=== PATIENT | female | born 1995 | race Caucasian/White ===

== ENCOUNTER 2019-08-22 14:07 | Emergency (ER) | payer OTHER, SELFPAY ==
--- NOTE | ~2019-08-22 | XR_ITS ---
XR foot RT min 3V DATE: 08/22/2019 15:20 INDICATION: Dorsal swelling following injury TECHNIQUE: 4 views COMPARISON: None FINDINGS: Hallux valgus. No fracture, dislocation, periosteal reaction or bone destruction. IMPRESSION: Hallux valgus Reviewed, dictated and finalized at location A. IMPRESSION: Hallux valgus
--- NOTE | 2019-08-22 14:21 | ED.LOWEXIN ---
HPI - Extremity Injury (Lower) General Chief Complaint: Extremity Injury, Lower Stated Complaint: Hurt foot Time Seen by Provider: 08/22/19 14:42 Source: patient Mode of arrival: ambulatory Limitations: no limitations History of Present Illness HPI Narrative: Previously well 24-year-old woman comes in today complaining of a knot on the top of her right foot. Patient states that approximately a month and half ago she struck it on a bed frame and had pain for several days. Swelling has not improved and is painful while she wear shoes. She has no pain with ambulation Or foot movement. complaint: foot injury Onset (ago): week(s) (6) Injury: Right: foot Type of Injury: blunt Place: home Severity: moderate Relieving factors: rest Exacerbating factors: palpation Context: direct blow Associated symptoms: swelling Other symptoms: none Related Data Home Medications Medication Instructions Recorded Confirmed No Home Medications 08/22/19 08/22/19 Allergies Allergy/AdvReac Type Severity Reaction Status Date / Time No Known Allergies Allergy Unverified 09/26/14 06:29 Review of Systems Constitutional: Constitutional: Denies chills and Denies fever(s) ENT: Denies dysphagia, Denies nasal congestion and Denies sore throat Cardiovascular: Cardiovascular: Denies chest pain and Denies radiating jaw, neck or arm pain Respiratory: Respiratory: Denies cough, Denies dyspnea and Denies wheezing Gastrointestinal: Gastrointestinal: Denies nausea and Denies vomiting Musculoskeletal: Musculoskeletal: Reports as per HPI, Denies arthralgias and Denies joint swelling Neurologic: Denies vertigo, Denies dizziness, Denies syncope, Denies focal weakness, Denies numbness and Denies weakness Hematologic/Lymphatic: Hematologic/Lymphatic: Denies easy bleeding and Denies easy bruising Allergic/Immunologic: Allergic/Immunologic: Denies lip swelling and Denies wheezing PMFSH Social History Social History Smoking status: Current every day smoker Alcohol intake: never Substance use: current Substance use type: marijuana Living arrangements: with family Exam Const: General: healthy appearing, no acute distress and alert Orientation/consciousness: patient oriented x3 Resp: Effort & Inspection: normal respiratory effort and not labored Auscultation: clear to auscultation bilaterally, no rales, no rhonchi and no wheezes Cardio: Rate: regular rate Rhythm: regular rhythm Heart sounds: no murmurs Skin: General skin exam: normal color, no jaundice and no pallor Rashes: no rashes Neuro: General: patient oriented x3, moves all extremities, no focal motor deficits and CN's II-XI intact bilaterally Cranial nerves: Yes Nystagmus not present Speech: normal speech Extrem: General: normal to inspection and no clubbing, cyanosis or edema Other: 1.5 cm mobile nodule on the dorsum of the right foot which is minimally tender. It is overlying the mid 2nd metatarsal. There is no tenderness with active and passive motion of the mid and distal foot and there is no overlying erythema or induration. Psych: Appearance: grossly normal and well kempt Mental Status: mental status grossly normal Affect: normal affect Attitude: cooperative Thought content: Yes Normal thought content present Discharge Plan Discharge Clinical Impression: Contusion of foot Patient Disposition: Home, Self-Care Condition: Stable Instructions: Foot Contusion (ED) Follow-up/Referrals: Stew Thompson MD [Primary Care Provider] - Time of Disposition: 15:39
[2019-08-22 14:47] VITALS: BP 110/68; PULSE 81; RESP 16; TEMP 36.6; O2SAT 100
== END 2019-08-22 15:57 | disposition home or self-care (01) ==
PROVIDERS: Emergency Provider Emergency Medicine; PCP Family Medicine
DX: S90.31XA Contusion of right foot, initial encounter (principal); W22.03XA Walked into furniture, initial encounter
CPT/HCPCS: 51701; 73630; 99282; 99283

== ENCOUNTER 2020-01-21 21:56 | Emergency (ER) | payer OTHER, SELFPAY ==
[2020-01-21 22:47] VITALS: BP 110/60; PULSE 70; RESP 18; TEMP 36.6; O2SAT 99
[2020-01-21 23:00] LABS: Add Urine Microscopic? YES; Appearance Urine Cloudy (Clear); Bilirubin Urine Negative (Negative); Blood Urine 1+ (Negative); Color Urine Yellow (Yellow); Glucose Urine UA Negative (Negative); Ketones Urine Negative (Negative); Leukocyte Esterase Ur 2+ LEU/UL (Negative); Nitrate Urine Negative (Negative); Protein Urine 1+ (Negative); Specific Grav Ur >= 1.030 (1.010-1.020); Urobilinogen Urine 0.2 mg/dL (0.2-1.0)
[2020-01-21 23:06] LABS: Bacteria Urine 1+ /hpf; Squamous Epithelial Cell Urine Moderate /hpf (Few); WBC Urine >75 /hpf (0-3)
--- NOTE | 2020-01-21 23:38 | ED.ABDPAIN ---
HPI - Abdominal Pain General Chief Complaint: Urogenital-Female Stated Complaint: lower abd cramps Source: patient Mode of arrival: ambulatory Limitations: no limitations History of Present Illness MD elicited complaint: abdominal pain Pertinent past history: none Onset (ago): day(s) (3-4 days ago) Pain Consistency: intermittent Location: suprapubic Severity: mild Pain scale (0-10): 4 Quality: aching Radiation: none Exacerbating factors: other (urination) Relieving factors: rest Associated symptoms: dysuria Treatments prior to arrival: other (none) Related Data Allergies Allergy/AdvReac Type Severity Reaction Status Date / Time No Known Allergies Allergy Unverified 09/26/14 06:29 Review of Systems Review of Systems: Narrative: Patient states she has had urinary frequency and dysuria for the past 3-4 days. This has been becoming more severe and more uncomfortable, and that is why she comes in. She has had no fever or chills. Other 8 point review of systems negative except as above. [facility] Past Medical History Medical History No significant medical problems Surgical History Surgical History No significant past surgical history Family History Family History Father CAD (coronary artery disease) Social History Social History Smoking status: Current every day smoker Alcohol intake: never Substance use: current Substance use type: marijuana Exam Const: General: no acute distress HENMT: Head: normal to inspection Face and sinus: normal facial exam Teeth and gingiva: dentition normal Eyes: Conjunctivae: conjunctivae normal Neck: Neck: normal visual inspection Chest: Chest palpation & inspection: normal inspection of the chest Resp: Effort & Inspection: normal respiratory effort Auscultation: clear to auscultation bilaterally Cardio: Rate: regular rate Rhythm: regular rhythm GI: GI Palp: Yes Soft to palpation Other: nopn tender, except mild tenderness over bladder Back/Spine/Pelvis: Back: no CVA tenderness Skin: General skin exam: normal color Neuro: General: patient oriented x3 and moves all extremities Extrem: General: normal to inspection Psych: Appearance: grossly normal Mental Status: mental status grossly normal Thought content: Yes Normal thought content present Course Course Emergency Course: Urinanalysis reviewed. She was given rocephin 1 gram IM. Urine culture was set up. She was sent home with a script for Cipro, and instructed to follow up with her primary care provider. Vital Signs Vital signs: Vital Signs Temperature 36.6 C 01/21/20 22:47 Pulse Rate 70 01/21/20 22:47 Respiratory Rate 18 01/21/20 22:47 Blood Pressure 110/60 01/21/20 22:47 Pulse Oximetry 99 01/21/20 22:47 Temperature 36.6 C 01/21/20 22:47 Pulse Rate 70 01/21/20 22:47 Respiratory Rate 18 01/21/20 22:47 Blood Pressure 110/60 01/21/20 22:47 Pulse Oximetry 99 01/21/20 22:47 MDM - Abdominal Pain Lab Data Labs: Lab Results 01/21/20 Range/Units 22:54 Urine Color Yellow (Yellow) Urine Appearance Cloudy A (Clear) Urine pH 6.0 (5.0-8.0) Ur Specific [place] >= 1.030 H (1.010-1.020) Urine Protein 1+ H (Negative) Urine Glucose (UA) Negative (Negative) Urine Ketones Negative (Negative) Ur Blood (Man) 1+ H (Negative) Urine Nitrate Negative (Negative) Urine Bilirubin Negative (Negative) Urine Urobilinogen 0.2 (0.2-1.0) mg/dL Leukocyte Esterase Rfl 2+ H (Negative) EFRNANDA/UL Urine RBC 6-10 H (0-2) /hpf Urine WBC >75 H (0-3) /hpf Ur Squamous Epith Cells Moderate H (Few) /hpf Urine Bacteria 1+ H (None) /hpf Discharge Plan Discharge Clinical Impression: Urinary tract infection Qualifiers: Urinar
[2020-01-21] MEDS: cefTRIAXone 1 GM VIAL (23:50)
[2020-01-21 23:54] VITALS: BP 101/60; PULSE 70; RESP 18; TEMP 36.4; O2SAT 97
== END 2020-01-21 23:54 | disposition home or self-care (01) ==
PROVIDERS: Emergency Provider Emergency Medicine; PCP Family Medicine
DX: N39.0 Urinary tract infection, site not specified (principal); N10 Acute pyelonephritis
CPT/HCPCS: 81001; 87086; 87088; 96372; 99283; J0696

== ENCOUNTER 2020-03-19 22:07 | Emergency (ER) | payer OTHER, SELFPAY ==
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
--- NOTE | 2020-03-19 22:17 | ED.UPPEXIN ---
HPI - Extremity Injury (Upper) General Stated Complaint: Hurt left hand Source: patient Mode of arrival: ambulatory Limitations: no limitations History of Present Illness HPI narrative: Pt hit hand on suitcase when she set it down. Now pain on left hand area. complaint: injury to: left Other Extremity Injury: Left: hand Other injuries: none Handedness: left Place: home Severity: mild Relieving factors: none Exacerbating factors: none Context: direct blow Associated symptoms: denies other symptoms Related Data Allergies Allergy/AdvReac Type Severity Reaction Status Date / Time No Known Allergies Allergy Unverified 09/26/14 06:29 Review of Systems Review of Systems: All systems reviewed & are unremarkable except as noted in HPI and below PMFSH Past Medical History Medical History No significant medical problems Surgical History Surgical History No significant past surgical history Family History Family History Father CAD (coronary artery disease) Social History Social History Smoking status: Current every day smoker Alcohol intake: never Substance use: current Substance use type: marijuana Gender identity (if verbalized by the patient): Female Exam Const: General: no acute distress Orientation/consciousness: patient oriented x3 HENMT: Head: normal to inspection Eyes: Conjunctivae: conjunctivae normal Neck: Neck: normal visual inspection Chest: Chest palpation & inspection: normal inspection of the chest Resp: Effort & Inspection: normal respiratory effort Skin: General skin exam: normal color Neuro: General: patient oriented x3 and moves all extremities Gait exam (Neuro): Normal gait present Extrem: Other: mild spot of erythema about half dollar size on left lateral dorsal hand Psych: Mental Status: mental status grossly normal Affect: normal affect Critical Care Time Critical Care Time Critical Care Time: No Discharge Plan Discharge Clinical Impression: Contusion of hand Patient Disposition: Home, Self-Care Condition: Stable Instructions: Antibiotic Form, Contusion in Adults (ED) Prescriptions: No Action ciprofloxacin HCl [Cipro] 500 mg tablet 500 mg PO Q12H Qty: 20 RF: 0 Follow-up/Referrals: Stew Thompson MD [Primary Care Provider] -
[2020-03-19 22:18] VITALS: BP 110/70; PULSE 72; RESP 16; TEMP 36.6; O2SAT 98
[2020-03-19 22:59] VITALS: BP 111/80; PULSE 78; RESP 18; TEMP 36.6; O2SAT 99
== END 2020-03-19 23:00 | disposition home or self-care (01) ==
PROVIDERS: Emergency Provider Emergency Medicine; PCP Family Medicine
DX: S60.222A Contusion of left hand, initial encounter (principal); W22.8XXA Striking against or struck by other objects, initial encounter
CPT/HCPCS: 73120; 99282; 99283

== ENCOUNTER 2020-07-27 13:33 | Emergency (ER) | payer OTHER, SELFPAY ==
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
[2020-07-27 14:32] VITALS: BP 112/66; PULSE 98; RESP 16; TEMP 37; O2SAT 99
[2020-07-27] MEDS: IBUPROFEN 400 MG TABLET PO (15:11)
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
== END 2020-07-27 15:35 | disposition home or self-care (01) ==
PROVIDERS: Emergency Provider Emergency Medicine; PCP Family Medicine
DX: S29.9XXA Unspecified injury of thorax, initial encounter (principal); Y04.0XXA Assault by unarmed brawl or fight, initial encounter
CPT/HCPCS: 71101; 99283; A9270

== ENCOUNTER 2021-04-11 19:56 | Inpatient (IN) | payer OTHER, SELFPAY ==
[2021-04-11 20:25] VITALS: BP 145/82; PULSE 73
[2021-04-11 20:31] VITALS: BP 129/75; PULSE 87
[2021-04-11 21:58] LABS: Basophils Percent Auto 0.4 % (0.2-1.2); Eosinophils Absolute Auto 0.1 K/mm3 (0-0.3); Eosinophils Percent Auto 0.5 % (0-4.4); Hemoglobin 11.9 g/dL (12.0-15.0); Immature Granulocyte Absolute 0.07 K/mm3 (0.00-0.031); Immature Granulocyte Percent A 0.6 % (0-0.5); Lymphocytes Absolute Auto 1.79 K/mm3 (0.9-3.2); Lymphocytes Percent Auto 16.3 % (18.3-44.2); Mean Corpuscular Hemoglobin 32.7 pg (26-34); Mean Corpuscular Volume 93.4 fl (80-100); Monocytes Absolute Auto 0.6 K/mm3 (0.1-0.6); Monocytes Percent Auto 5.8 % (2.6-8.5); Neutrophils Absolute Auto 8.4 K/mm3 (1.3-6.7); Neutrophils Percent Auto 76.4 % (45.5-73.1); Platelet Count Result 281 k/mm3 (150-375); Red Blood Count 3.64 M/mm3 (4.2-5.4); Red Cell Distribution Width 11.9 % (11.5-14.5)
[2021-04-11 22:15] LABS: Amphetamine Screen Urine Negative (Negative); Barbiturate Screen Urine Negative (Negative); Benzodiazepines Screen Urine Negative (Negative); Cannabinoid Screen Urine Positive (Negative); Cocaine Screen Urine Negative (Negative); Methadone Screen Urine Negative (Negative); Opiate Screen Urine Negative (Negative); Phencyclidine Screen Urine Negative (Negative)
[2021-04-11 22:27] VITALS: BMI 38.2
[2021-04-11] MEDS: DINOPROSTONE 10 MG VAG INSERT VAGINAL (22:41)
[2021-04-11 22:46] VITALS: BP 148/82; PULSE 74; RESP 18; TEMP 37.3
[2021-04-11 22:52] LABS: HIV 1/2 Ab P24 Ag Result Negative (Negative)
[2021-04-11] MEDS: AMPICILLIN 2 GM/NS 100 ML 2 GM/100 ML BAG IVPB (22:58)
[2021-04-11] MEDS: LACTATED RINGERS 1,000 ML 125 ML IV CONT (22:58)
[2021-04-11 23:01] VITALS: BP 125/77; PULSE 78
[2021-04-11 23:31] VITALS: BP 133/85; PULSE 76
[2021-04-12] VITALS (78 sets, daily range): BP systolic 97–152; BP diastolic 37–101; PULSE 72–166; RESP 16–18; TEMP 36.5–37.2; O2SAT 97–100
--- NOTE | 2021-04-12 01:55 | LDADM ---
This patient, Savannah Wolfe, was admitted to Labor/Delivery/Recovery 107 on 04/11/21 at 19:56. Plans for labor, pain management and were discussed with patient. Patient/family oriented to hospital policies and general routines including ID bracelet, bed and alarms, visiting hours, pain management, procedures, bathroom and other care routines, personal items, smoking policy, room service/diet and guest tray routines, security routines, and visiting hours. Patient/Family are encouraged to report perceived risks to care and to ask questions if they do not understand what they are told or what they should do. See [facility]BI[facility] for further documentation.
[2021-04-12] MEDS: LACTATED RINGERS 1,000 ML 125 ML IV CONT ×2 (02:56→09:10)
[2021-04-12] MEDS: AMPICILLIN 1 GM/NS 50 ML 1 GM/50 ML BAG IVPB ×4 (02:57→15:19)
[2021-04-12] MEDS: fentaNYL CITRATE INJ (*CRX) 100 MCG/2 ML VIAL 50 MCG IV PUSH (03:46)
[2021-04-12] MEDS: fentaNYL CITRATE INJ (*CRX) 100 MCG/2 ML VIAL IV PUSH ×3 (04:46→09:28)
[2021-04-12] MEDS: OXYTOCIN 30 UNITS/NS 500 ML 30 UNITS/500 ML BAG 6 UNITS IV CONT (07:13)
--- NOTE | 2021-04-12 16:17 | PM.IMHP ---
H&P: HPI History of Present Illness Date/Time: 04/12/21 16:17 Chief Complaint: Intrauterine at term Narrative: 26 yo G1 at 40w1d who presents for elective IOL. Her has been complicated by late care, tobacco use, history of amphetamine use, THC use, gonorrhea infection. She endorses good movement. She denies any vaginal bleeding and leakage of fluid. Review of Systems Cardiovascular: Cardiovascular: Denies chest pain, Denies leg edema, Denies palpitations, Denies dyspnea and Denies dyspnea on exertion Respiratory: Respiratory: Denies cough, Denies dyspnea and Denies dyspnea on exertion Gastrointestinal: Gastrointestinal: Denies abdominal pain, Denies constipation, Denies diarrhea, Denies nausea and Denies vomiting Genitourinary: Genitourinary: Denies hematuria, Denies urinary frequency, Denies dysuria, Denies pelvic pain, Denies urinary incontinence and Denies vaginal discharge Neurologic: Reports system reviewed and no additional complaints, except as documented Psychiatric: Psychiatric: Reports no additional psychiatric complaints Endocrine: Endocrine: Denies palpitations PMFSH Past Medical History Medical History No significant medical problems Surgical History Surgical History No significant past surgical history Family History Family History Father CAD (coronary artery disease) Social History Social History Smoking status: Current every day smoker Tobacco type: e-cigarettes/vaping Second hand tobacco smoke exposure: No (PT states no) Alcohol intake: never Substance use: current Substance use type: marijuana Gender identity (if verbalized by the patient): Female Spiritual care concerns: No Meds Home Medications and Allergies Allergies Allergy/AdvReac Type Severity Reaction Status Date / Time No Known Allergies Allergy Verified 04/11/21 22:23 Vital Signs Vital Signs - 24 hr 04/11/21 20:25 04/11/21 20:31 04/11/21 22:46 Temperature 37.3 C Pulse Rate 73 87 74 Respiratory Rate 18 Blood Pressure 145/82 H 129/75 148/82 H Pulse Oximetry 04/11/21 23:01 04/11/21 23:31 04/12/21 00:01 Temperature Pulse Rate 78 76 80 Respiratory Rate Blood Pressure 125/77 133/85 128/72 Pulse Oximetry 04/12/21 00:31 04/12/21 01:00 04/12/21 03:32 Temperature 37.2 C 36.8 C Pulse Rate 90 Respiratory Rate 18 18 Blood Pressure 131/70 Pulse Oximetry 04/12/21 03:42 04/12/21 06:00 04/12/21 07:21 Temperature 36.9 C Pulse Rate 83 90 Respiratory Rate Blood Pressure 144/88 H 136/73 Pulse Oximetry 04/12/21 08:00 04/12/21 09:49 04/12/21 09:52 Temperature 36.5 C Pulse Rate 122 H 100 Respiratory Rate Blood Pressure 152/86 H 137/71 Pulse Oximetry 100 04/12/21 09:54 04/12/21 09:56 04/12/21 09:57 Temperature Pulse Rate 104 H 101 H Respiratory Rate Blood Pressure 127/63 123/70 Pulse Oximetry 100 04/12/21 09:59 04/12/21 10:00 04/12/21 10:01 Temperature 36.9 C Pulse Rate 99 89 Respiratory Rate Blood Pressure 124/73 126/71 Pulse Oximetry 100 04/12/21 10:03 04/12/21 10:04 04/12/21 10:05 Temperature Pulse Rate 140 H 100 Respiratory Rate Blood Pressure 133/50 L 115/73 Pulse Oximetry 100 04/12/21 10:07 04/12/21 10:09 04/12/21 10:11 Temperature Pulse Rate 97 94 99 Respiratory Rate Blood Pressure 113/68 123/64 121/60 Pulse Oximetry 100 04/12/21 10:13 04/12/21 10:14 04/12/21 10:15 Temperature Pulse Rate 80 115 H Respiratory Rate Blood Pressure 126/54 L 119/57 L Pulse Oximetry 97 04/12/21 10:17 04/12/21 10:19 04/12/21 10:21 Temperature Pulse Rate 166 H 96 101 H Respiratory Rate Blood Pressure 112/66
[2021-04-12 16:48] LABS: Rapid Plasma Reagin Non-Reactive (NonReactive)
--- NOTE | 2021-04-12 16:48 | PM.OBPRVD ---
OB - Delivery Note Procedure Procedure: Patient pushed for a spontaneous vaginal delivery. A nuchal cord x 1 was noted and delivered through. The fetus was delivered atraumatically and placed on the maternal abdomen. The cord was clamped and cut after 1 minute of life. The cord was double clamped and cut and a segment of cord was collected for cord gases. Cord blood was collected for blood type and Coomb's testing. The placenta delivered spontaneously and was noted to be intact. The perineum was inspected and there was a 1st degree perineal laceration and a periurethral. The lacerations were repaired with 3-0 vicryl in the usual fashion. The uterus was firm and good hemostasis was noted. The patient and fetus were stable in the delivery room. events: Labor Induction Intrapartal events: None Induction method: per cervidil protocol Delivery augmentation: pitocin Delivery monitor: external FHT Route of delivery: Episiotomy description: None Laceration Description: Periurethral and Perineal - 1st Degree Delivery repair: vicryl Specimen: No Quantitative Blood Loss (ml): 350 Anesthesia type: Epidural Disposition: floor () Complications: No immediate complications Baby Date of : 04/12/21 Time of : 16:32 Weeks of gestation at delivery: 40 gender: Male Weight (pounds): 7 Weight (ounces): 7 presentation: vertex position: Left Occiput Anterior Placenta delivery description: Spontaneous cord vessel description: 3 Vessels and Nuchal Cord score one minute: 9 score five minutes: 9
[2021-04-12] MEDS: OXYTOCIN 30 UNITS/NS 500 ML 30 UNITS/500 ML BAG 125 UNITS IV CONT (17:07)
[2021-04-12] MEDS: miSOPROStol 200 MCG TABLET 1000 MCG (17:07)
[2021-04-12] MEDS: BENZOCAINE 20% AER SPR (*SP) 56 GM CAN 1 SPRAY TOPICAL (18:28)
[2021-04-12] MEDS: IBUPROFEN 600 MG TABLET PO (18:28)
[2021-04-12] MEDS: WITCH HAZEL 40 PADS 1 PAD TOPICAL (18:28)
[2021-04-13 04:30] VITALS: BP 136/78; PULSE 74; RESP 16; TEMP 36.6
[2021-04-13 05:42] LABS: Hematocrit 29.1 % (37.0-47.0)
--- NOTE | 2021-04-13 06:23 | PM.OBPNVD ---
OB - PN: Subj Subjective Date/time seen: 04/13/21 06:23 Patient comments: no complaints and pain well controlled baby status: doing well and nursing well OB - PN: Obj Data Labs CBC & Chem 7: 04/13/21 04:45 Labs: Laboratory Results - last 24 hr 04/11/21 04/13/21 21:46 04:45 Hgb 10.0 L Hct 29.1 L RPR Non-reactive OB - PN A/P Plan day: 1 Plan: routine care Time Spent With Patient Time: Total time spent is greater than 50% in coordination of care (as documented) at patient's floor/unit and/or counseling patient: Time with patient: less than 15 minutes Review of Systems Review of Systems: All systems reviewed & are unremarkable except as noted in HPI and below Exam Const: General: no acute distress Eyes: General: appearance normal, both eyes and all related structures Neck: Neck: supple and no JVD Thyroid: thyroid normal Resp: Effort & Inspection: normal respiratory effort Auscultation: clear to auscultation bilaterally Cardio: Rate: regular rate Rhythm: regular rhythm GI: Inspection: non-distended GI Palp: Yes Soft to palpation, No Tenderness to palpation present (GI) and No Guarding due to palpation present (GI) Auscultation: normal bowel sounds : General: Yes bladder normal to palpation External Female Exam: normal external appearance Speculum Exam - Vagina: normal vaginal discharge and No vaginal bleeding Speculum Exam - Cervix: nontender Bimanual exam- vagina & uterus: bladder normal to palpation and No Cervical tenderness present OB/external & speculum: No vaginal bleeding Skin: General skin exam: no rashes or lesions noted Extrem: General: normal to inspection and no edema Psych: Mental Status: mental status grossly normal Affect: normal affect
[2021-04-13 07:20] VITALS: BP 132/82; PULSE 78; RESP 18; TEMP 37; O2SAT 98
--- NOTE | 2021-04-13 07:39 | WPDANLDPN2 ---
Anes-Prog Note L&D Date/Time: 04/13/21 07:39 Comfortable throughout: labor and delivery Neuraxial method: epidural Epidural/Spinal procedure site: clean & non-tender Neuro status: Neuro function grossly intact. Cardiovascular status: normal Respiratory status: normal Airway patency: baseline Mental status: baseline Post-Op hydration status: normal Vital Signs: Last Vital Signs Temp 97.9 F 04/13/21 04:30 Pulse 74 04/13/21 04:30 Resp 16 04/13/21 04:30 BP 136/78 04/13/21 04:30 Pulse Ox 99 04/12/21 10:49 Pain score (VAS): 0 I/O: Intake & Output 04/12/21 04/12/21 04/13/21 15:59 23:59 07:59 Intake Total 1050 Balance 1050 Post-procedural complaints: none Patient feedback: Patient satisfied with anesthetic care.
[2021-04-13 08:00] VITALS: PULSE 78; RESP 16; O2SAT 100
--- NOTE | 2021-04-13 09:38 | PC.NURSE ---
Patient was given the opportunity to view the discharge video Mother & Baby Care, The First Two Weeks and to ask questions. Patient declined viewing the video and has been given the mother/baby guide for home reference.
[2021-04-13] MEDS: MULTIVIT/MIN/PREN/FOL AC/IRON TABLET 1 TAB PO (09:50)
[2021-04-13] MEDS: IBUPROFEN 600 MG TABLET PO ×2 (09:50→16:18)
[2021-04-13] MEDS: DOCUSATE SODIUM 100 MG CAPSULE PO ×2 (09:50→16:18)
[2021-04-13 12:20] VITALS: BP 125/64; PULSE 85; RESP 16; TEMP 36.2; O2SAT 100
--- NOTE | 2021-04-13 13:34 | PC.NURSE ---
0730 - Introductions were made and mother led the discussion of her desires and plan to feeding her baby. Reviewed history and experience of so far. Mom has not breastfed since 0115 and states infant andree to the nursery at 0430, then circumcised and received medication. is now with mom. RN assisted infant skin to skin with mother. Reviewed handwashing to prevent infection before and after taking care of her baby, hand expression and stimulating sleepy infant. Discussed how to watch for early feeding cues, place skin to skin, then feeding baby when infant is ready or every 2-3 hours. Reviewed positioning/alignment. Mother demonstrated hand expression and colostrum into infants mouth. Baby remains sleepy, without feeding cues and not latching. 0800 - taken to the nursery for blood sugar to be checked. blood sugar is 90 and reported to primary RN. Discussed test results with mom and infant remained in the nursery for it security consultant to assess. 0910 - Reinforced teaching undressing infant, placing skin to skin and stimulating to feed baby. Educated mother on the risks with using marijuana and mother states she has no plans to continue use. Reviewed watching for feeding cues, hand expression and milk production. 0915 - is not demonstrating feeding cues. Mother will remain skin to skin with baby as she eats her breakfast and voiced she will call for assistance when feeding cues are visualized. 1100 - is sleepy and reluctant. Reviewed risks and benefits of different options of feeding infant with no latching. Mother hand expressed many drops of colostrum into infants mouth from both right and left breast. Infant placed skin to skin with mom at 1120. Discussed pumping/supplementing if infant doesn't latch. Mother has grade 2 flat nipple with large breast bilaterally. Reviewed adequate feedings, intake, output, jaundice, weight and blood sugar. Mother has verbalized understanding watching for feeding cues for responsive feeding or how to stimulate to initiate feeding. Mother voiced understanding to feed infant when she sees feeding cues, 8-12 times in 24 hours approximately every 2-3 hours from the start of the last feeding or she has discomfort with nursing. Reported to primary RN.
--- NOTE | 2021-04-13 14:25 | PCCCNOTE ---
Addendum entered by MIRI Banks 04/13/21 15:56: Received DCFS confirmation that a report will not be taken regarding [id number]. Original Note: Care Coordination Consult: Met with pt. today who reports this is her first baby. Pt.'s boyfriend is in room asleep at bedside. Pt. reports she lives at home with her boyfriend. Has a supportive family. Has all necessary supplies at home including a crib, carseat, clothing, diapers etc. Pt. is set up with [facility] and will set up baby at discharge. resources provided. Pt. wants to try to breast feed, plans to get a breast bump at discharge. Spoke to pt. regarding positive marijuana test upon admission to hospital. Pt. reports recreational marijuana use. No other substance use. Reports she plans to discontinue now that she is going to breastfeed. Pt. denies any resources for substance use. Baby is also positive for marijuana. Completed online DCFS report [id number] regarding marijuana use.
[2021-04-13 19:16] VITALS: BP 126/63; PULSE 84; RESP 16; TEMP 36.7
--- NOTE | 2021-04-14 05:38 | PM.OBPNVD ---
OB - PN: Subj Subjective Date/time seen: 04/14/21 05:38 Patient comments: no complaints, pain well controlled and flatus present OB - PN: Obj Data Labs CBC & Chem 7: 04/13/21 04:45 Labs: Laboratory Results - last 24 hr 04/13/21 04:45 Hgb 10.0 L Hct 29.1 L OB - PN A/P Plan day: 3 Plan: routine care, discharge home and follow up 6 weeks (4) Time Spent With Patient Time: Total time spent is greater than 50% in coordination of care (as documented) at patient's floor/unit and/or counseling patient: Time with patient: less than 15 minutes Review of Systems Review of Systems: All systems reviewed & are unremarkable except as noted in HPI and below Exam Const: General: no acute distress Eyes: General: appearance normal, both eyes and all related structures Neck: Neck: supple and no JVD Thyroid: thyroid normal Resp: Effort & Inspection: normal respiratory effort Auscultation: clear to auscultation bilaterally Cardio: Rate: regular rate Rhythm: regular rhythm GI: Inspection: non-distended GI Palp: Yes Soft to palpation, No Tenderness to palpation present (GI) and No Guarding due to palpation present (GI) Auscultation: normal bowel sounds : General: Yes bladder normal to palpation External Female Exam: normal external appearance Speculum Exam - Vagina: normal vaginal discharge and No vaginal bleeding Speculum Exam - Cervix: nontender Bimanual exam- vagina & uterus: bladder normal to palpation and No Cervical tenderness present OB/external & speculum: No vaginal bleeding Skin: General skin exam: no rashes or lesions noted Extrem: General: normal to inspection and no edema Psych: Mental Status: mental status grossly normal Affect: normal affect
--- NOTE | 2021-04-14 05:40 | PM.DS ---
DS: Admitting Diagnosis Discharge Date 04/14/2021 Admitting Diagnosis term with history of substance abuse and induction DS: Summary Hospital Course Hospital Course: patient was admitted for induction of labor at term . she underwent spontaneous vaginal delivery her hospital course was she remained afebrile. She was, generally complaints routine discharge instructions were given Time Spent with Patient Time attestation: Total time spent providing and/or coordinating discharge services: Exam Const: General: no acute distress Eyes: General: appearance normal, both eyes and all related structures Neck: Neck: supple and no JVD Thyroid: thyroid normal Resp: Effort & Inspection: normal respiratory effort Auscultation: clear to auscultation bilaterally Cardio: Rate: regular rate Rhythm: regular rhythm GI: Inspection: non-distended GI Palp: Yes Soft to palpation, No Tenderness to palpation present (GI) and No Guarding due to palpation present (GI) Auscultation: normal bowel sounds : General: Yes bladder normal to palpation External Female Exam: normal external appearance Speculum Exam - Vagina: normal vaginal discharge and No vaginal bleeding Speculum Exam - Cervix: nontender Bimanual exam- vagina & uterus: bladder normal to palpation and No Cervical tenderness present OB/external & speculum: No vaginal bleeding Skin: General skin exam: no rashes or lesions noted Extrem: General: normal to inspection and no edema Psych: Mental Status: mental status grossly normal Affect: normal affect DS: Data Data Completed and Pending Pending studies at discharge: Pending at discharge 04/12/21 16:39 Surgical [PTH] Routine Labs on day of discharge: Labs from last 24 hours 04/13/21 04:45 Hgb 10.0 L Hct 29.1 L Discharge Plan Discharge Attending physician on discharge: Bryant Stewart Discharging Clinician: Emory Gerardo Patient Disposition: Home, Self-Care Activity: may shower, no straining, no driving and pelvic rest Diet: heart healthy Wound Care Instructions: follow printed instructions Patient Instructions: Antibiotic Form Stand Alone Forms: General Discharge Information Follow-up/Referrals: Bryant Stewart MD [Physician] - Date of admission: 04/11/21 19:56 Primary Care Provider: Stew Thompson Admitting Provider: Bryant Stewart Attending physician on admission: Bryant Stewart Condition: Stable
[2021-04-14 08:35] VITALS: BP 130/81; PULSE 72; RESP 16; TEMP 36.5; O2SAT 100
[2021-04-14] MEDS: IBUPROFEN 600 MG TABLET PO (08:52)
[2021-04-14] MEDS: MULTIVIT/MIN/PREN/FOL AC/IRON TABLET 1 TAB PO (08:52)
--- NOTE | 2021-04-14 10:34 | PC.NURSE ---
Patient viewed the discharge video Mother & Baby Care, The First Two Weeks . Patient was given the opportunity and encouraged to ask questions. Patient verbalized understanding of information shared and has been given the mother/baby guide for home reference.
--- NOTE | 2021-04-14 14:17 | PC.NURSE ---
1005 -Mother led the conversation with regards to her experience feeding her baby so far. Reminded parents to use good handwashing to prevent infection. has had adequate feedings in the past 24 hours and meets the outcomes for weight, output and jaundice at this time. Mother states she feels confident to continue her at home. Mom states she is able to latch infant to breast with no discomfort. Reviewed production of human milk, transition of milk, signs of adequate intake and engorgement prevention/relief and when to call the care provider using the mom and baby guide. Reviewed community resources and outpatient services as listed in the mom and baby guide/[facility] website. Reinforced watching for feeding cues with responsive feeding and how to stimulate infant to initiate feeding three hours from the start of the last feeding. Mother voiced understanding of information shared. Reported to primary RN.
--- NOTE | 2021-04-14 14:21 | PC.NURSE ---
1200 -Primary RN requested a consult to assess latch. Mother has latch to the right breast using football positioning sitting in the chair by the window. She states the latch is good with no discomfort . Latch is less than 90 degrees. RN encouraged mother to detach infant using her finger into the baby mouth. Nipple is misshaped. Reviewed skin to skin, optimal latching using listening, touch and visual signs for confirmation. With encouraging mom with multiple attempts baby has wide open gape, mom brings gently and swiftly to the breast. Infant has rocking motion with appropriate suck/swallow ratios showing occasional swallowing. Mom states there's no discomfort. Reviewed with mother the frequencies of feedings, optimal latch, intake, output, jaundice and when to call the provider if needed. Mom verbally acknowledges the understanding of how to stimulate infant to wake/eat. Reported to primary RN.
== END 2021-04-14 15:33 | disposition home or self-care (01) | DRG 560 ==
LOC: ANHLDR 04-12 09:12 → ANHOB2 04-13 09:01 → ANHLDR 04-15 10:38 → ANHOB2 04-15 10:38
PROVIDERS: Admitting Provider Student in an Organized Health Care Education/Training Program; PCP Family Medicine; Visit Provider Obstetrics & Gynecology
DX: O99.334 Smoking (tobacco) complicating childbirth (principal); F17.290 Nicotine dependence, other tobacco product, uncomplicated; O99.824 Streptococcus B carrier state complicating childbirth; O69.81X0 Labor and delivery complicated by cord around neck, without compression, not applicable or unspecified; O70.0 First degree perineal laceration during delivery; O71.82 Other specified trauma to perineum and vulva; O99.324 Drug use complicating childbirth; F15.90 Other stimulant use, unspecified, uncomplicated; F12.90 Cannabis use, unspecified, uncomplicated; Z3A.40 40 weeks gestation of pregnancy; Z37.0 Single live birth
CPT/HCPCS: 36415; 80307; 85014; 85018; 85025; 86592; 86703; 86850; 86900; 86901; 88307; A9270; G0432; J0290; J2590; J2795; J3010; J7120

== ENCOUNTER 2022-06-26 16:17 | Outpatient (CLI) | payer OTHER, SELFPAY ==
--- NOTE | ~2022-06-26 | XR_ITS ---
XR foot LT min 3V 06/26/2022 16:38 Indication: Left foot pain Procedure: 4 views left foot Comparison: 04/24/2012 Findings: No fracture, subluxation or dislocation. Lisfranc joint intact. No foreign bodies. No signi ficant soft tissue abnormality. No foreign bodies. Impression: 1: No significant bone or joint abnormality. Reviewed, dictated and finalized at location A. Impression: 1: No significant bone or joint abnormality.
== END 2022-06-26 16:18 | disposition home or self-care (01) ==
LOC: CHSIMG 16:19
PROVIDERS: PCP Family Medicine; Visit Provider Family Medicine
DX: M79.672 Pain in left foot (principal)
CPT/HCPCS: 73630

== ENCOUNTER 2023-04-14 09:44 | Emergency (ER) | payer OTHER, SELFPAY ==
[2023-04-14 09:45] VITALS: BP 137/70; PULSE 101; RESP 20; TEMP 36.5; O2SAT 100
--- NOTE | 2023-04-14 09:56 | ED.ABDPAIN ---
HPI - Abdominal Pain General Chief Complaint: Abdominal Pain Stated Complaint: nausea Time Seen by Provider: 04/14/23 09:56 Source: patient Mode of arrival: ambulatory Limitations: no limitations History of Present Illness HPI narrative: 28-year-old female with a prior history of amphetamine use, smoker presents to the ER with a 5 hour history of -- epigastric pain which is continuous -- nausea with multiple episodes of vomiting. No diarrhea. No hematemesis or melena. MD elicited complaint: abdominal pain Onset (ago): hour(s) ( 5 hours ago) Pain Consistency: constant Location: epigastric Severity: severe Quality: aching Radiation: none Migration to: no migration Exacerbating factors: nothing Relieving factors: nothing Associated symptoms: nausea and vomiting Related Data Date of Last Menstrual Period: 04/05/23 Patient : No Allergies Allergy/AdvReac Type Severity Reaction Status Date / Time No Known Allergies Allergy Verified 04/14/23 09:51 Review of Systems Review of Systems: All systems reviewed & are unremarkable except as noted in HPI and below Constitutional: Constitutional: Reports as per HPI and Reports no additional constitutional complaints Eyes: Eyes: Reports as per HPI ENT: Reports system reviewed and no additional complaints, except as documented and Reports as per HPI Cardiovascular: Cardiovascular: Reports as per HPI and Reports no additional cardiovascular complaints Respiratory: Respiratory: Reports as per HPI and Reports no additional respiratory complaints Gastrointestinal: Gastrointestinal: Reports as per HPI, Reports abdominal pain, Reports nausea and Reports vomiting Genitourinary: Genitourinary: Reports no additional female genitourinary complaints and Reports as per HPI Musculoskeletal: Musculoskeletal: Reports no additional musculoskeletal complaints and Reports as per HPI Integumentary/Breasts: Skin/Breast: Reports system reviewed and no additional complaints, except as docu and Reports as per HPI Neurologic: Reports system reviewed and no additional complaints, except as documented and Reports as per HPI Psychiatric: Psychiatric: Reports no additional psychiatric complaints and Reports as per HPI Endocrine: Endocrine: Reports no additional endocrine complaints and Reports as per HPI Hematologic/Lymphatic: Hematologic/Lymphatic: Reports no additional hematologic/lymphatic complaints and Reports as per HPI Allergic/Immunologic: Allergic/Immunologic: Reports no additional allergic/immunologic complaints and Reports as per HPI PMFSH Past Medical History Medical History No significant medical problems Surgical History Surgical History No significant past surgical history Family History Family History Father CAD (coronary artery disease) Social History Social History Smoking status: Current every day smoker Tobacco type: e-cigarettes/vaping Second hand tobacco smoke exposure: No (PT states no) Alcohol intake: never Substance use: current Substance use type: marijuana Living arrangements: with family Gender identity (if verbalized by the patient): Female Spiritual care concerns: No Exam Const: General: no acute distress Nutritional Appearance: well nourished Orientation/consciousness: patient oriented x3 Limitations: no limitations HENMT: Head: normal to inspection Ears: external ears normal Face/Nose/Sinus: Normal external nose present Face and sinus: normal facial exam Mouth: Yes Normal oral and palatal mucosa present Throat: posterior oropharynx normal Eyes: Conjunctivae: conjunctivae normal Pupils: Equal, round and reactive pupils present EOM: EOMs intact bilaterally Direct Ophthalmoscopy: no photophobia Neck:
[2023-04-14] MEDS: LACTATED RINGERS 500 ML 999 ML IV CONT (10:25)
[2023-04-14] MEDS: PANTOPRAZOLE SODIUM IV 40 MG VIAL IV PUSH (10:26)
[2023-04-14] MEDS: ONDANSETRON INJ 4 MG/2 ML VIAL IV PUSH (10:26)
[2023-04-14 10:31] LABS: Basophils Absolute Auto 0.03 K/mm3 (0.00-0.10); Basophils Percent Auto 0.4 % (0.0-1.0); Eosinophils Absolute Auto 0.07 K/mm3 (0.02-0.50); Hematocrit 41.5 % (35.0-49.0); Hemoglobin 13.8 g/dL (12.0-15.0); Immature Granulocyte Absolute 0.03 K/mm3 (0.00-0.00); Immature Granulocyte Percent A 0.4 % (0.0-0.0); Mean Corpuscular HGB Conc 33.3 g/dL (32.0-36.0); Mean Corpuscular Volume 90.2 fL (78.0-102.0); Mean Platelet Volume 8.3 fl (9.2-11.8); Monocytes Percent Auto 4.4 % (2.0-11.0); Neutrophils Absolute Auto 5.3 K/mm3 (1.7-7.2); Neutrophils Percent Auto 77.8 % (50.0-70.0); Platelet Count Result 288 K/mm3 (150-420); Red Cell Distribution Width 11.9 % (11.6-14.4); White Blood Count 6.9 K/mm3 (4.8-10.8)
[2023-04-14 10:36] LABS: Bilirubin Urine Negative (Negative); Blood Urine Negative (Negative); Color Urine Light Yellow (Yellow); Glucose Urine UA Negative (Negative); Ketones Urine Negative (Negative); Leukocyte Esterase Ur Negative LEU/UL (Negative); Nitrate Urine Negative (Negative); Protein Urine Negative (Negative); Specific Grav Ur 1.015 (1.010-1.020); Urobilinogen Urine 0.2 mg/dL (0.2-1.0); pH Urine 8.5 (5.0-8.0)
[2023-04-14 10:38] LABS: Add Urine Microscopic? NO; Appearance Urine Slightly Cloudy (Clear)
[2023-04-14 10:39] LABS: Influenza A QL RT-PCR Negative (Negative); Influenza B QL RT-PCR Negative (Negative); RSV RNA, RT-PCR Negative (Negative); SARS-CoV-2 RNA PCR Negative (Negative)
[2023-04-14 10:39] LABS: Pregnancy On Board Control Positive; Urine Pregnancy Test Negative
[2023-04-14 10:42] LABS: Prothrombin Time 11.1 Seconds (9.50-12.10)
[2023-04-14 10:45] LABS: Alanine Aminotransferase 26 U/L (14-59); Albumin Level 3.7 g/dL (3.4-5.0); Alkaline Phosphatase 71 U/L (46-116); Anion Gap 9 mmol/L (8-16); Aspartate Amino Transferase 16 U/L (15-37); Bilirubin,Total 0.4 mg/dL (0.00-1.00); Blood Urea Nitrogen 9 mg/dL (7-18); Calcium 8.8 mg/dL (8.5-10.1); Carbon Dioxide 29 mmol/L (21-32); Chloride 100 mmol/L (98-108); Estimated CRCL calculation 78 ml/min; Estimated Glomerular Filt Rate > 60; Glucose 127 mg/dL (70-99); Lipase 19 U/L (16-77); Osmolality Calculated 286 mOsm/kg (285-295); Potassium 4.2 mmol/L (3.5-5.1); Sodium 138 mmol/L (136-145); Total Protein 7.5 g/dL (6.4-8.2)
[2023-04-14] MEDS: MORPHINE SULFATE (*CRX) 2 MG/ML INJ IV PUSH (10:46)
[2023-04-14 10:48] LABS: Lactic Acid Reflex 0.9 mmol/L (0.4-2.0)
[2023-04-14 11:26] VITALS: BP 138/72; PULSE 97; RESP 20; O2SAT 99
== END 2023-04-14 11:37 | disposition home or self-care (01) ==
PROVIDERS: Emergency Provider Internal Medicine Critical Care Medicine; PCP Family Medicine
DX: K29.00 Acute gastritis without bleeding (principal); F17.290 Nicotine dependence, other tobacco product, uncomplicated; Z20.822 Contact with and (suspected) exposure to COVID-19
CPT/HCPCS: 36415; 80053; 81003; 81025; 83605; 83690; 85025; 85610; 87637; 96361; 96374; 96375; 99284; C9113; J2270; J2405; J7120

== ENCOUNTER 2023-11-09 10:06 | Outpatient (CLI) | payer OTHER, SELFPAY | END 2023-11-09 10:07 | disposition home or self-care (01) | LOC: CHSCARD 10:09 | PROVIDERS: PCP Family Medicine; Visit Provider Nurse Practitioner Family | DX: R06.02 Shortness of breath (principal); F17.200 Nicotine dependence, unspecified, uncomplicated | CPT/HCPCS: 94060; 94726; 94729 ==

== ENCOUNTER 2025-02-24 10:21 | Outpatient (CLI) | payer OTHER, SELFPAY ==
[2025-02-24 11:01] LABS: Strep Group A RT-PCR NOT DETECTED (Negative)
[2025-02-24 11:13] LABS: Influenza A QL RT-PCR Negative (Negative); Influenza B QL RT-PCR Negative (Negative); RSV RNA, RT-PCR Negative (Negative); SARS-CoV-2 RNA PCR Negative (Negative)
== END 2025-02-24 10:22 | disposition home or self-care (01) ==
PROVIDERS: PCP Family Medicine; Visit Provider Family Medicine
DX: J06.9 Acute upper respiratory infection, unspecified (principal); Z20.822 Contact with and (suspected) exposure to COVID-19
CPT/HCPCS: 87637; 87651